=== PATIENT | male | born 1985 | race Hispanic/Latino ===

== ENCOUNTER 2022-06-03 12:31 | Emergency (ER) | payer BC ==
--- OUTSIDE RECORDS SUMMARY | 2022-06-03 12:33 | XMS REPORT | Continuity of Care Document ---
:1985 Author Organization [facility] t Address [address] [place] [address] Care Team Providers Name Role Phone Pcp, Patient Does Not Have A Primary Care Physician [id number] VASILIY AGUAYO Attending Clinician Unavailable Ebrasharda INTERNET E COMMER[employer] SPECIALISTVasiliy Nunez Attending Clinician Doctor Unassigned, [place] Attending Clinician Unavailable FLYNN DEL REAL Attending Clinician Unavailable Only, Ang Db Test Attending Clinician Unavailable Flynn Del Real MD Attending Clinician Lab, Adc Fam Pob I Attending Clinician Unavailable Ching Man Attending Clinician CHING MENDEZ Attending Clinician Unavailable Rhianna Victor Attending Clinician RHIANNA PHILLIPS Attending Clinician Unavailable Eduin Lopez Attending Clinician Payers Payer Name Policy Type Policy Number Effective Date Expiration Date S ourchang [facility] - [id number] 2018 00:00:00 OUT OF STATE Problems Condition Condition Condition Status Onset Resolution Last Treating Co mments Source Name Details Category Date Date Treatment Clinician Date No known No known Disease Unive rs active active ity of problems problems [facility] Allergies, Adverse Reactions, Alerts Allergy Allergy Status Severity Reaction(s) Onset Inactive Treating Comm ents Source Name Type Date Date Clinician Penicill Drug Active Other - See 2018-07 Uni vers in V Allergy comments 0-09 ity of 00:00: [address] NO KNOWN Drug Active Univers ALLERGIE Class ity of S [facility] Social History Social Habit Start Date Stop Date Quantity Comments Source Sex Assigned At [facility] Branch Exposure to 2021-12-04 2021-12-14 Not sure [facility] SARS-CoV-2 (event) 00:00:00 18:45:00 Medica l Branch Smoking Status Start Date Stop Date Source Unknown if ever smoked [facility] Medications Ordered Filled Start Stop Current Ordering Indication Dosage Frequency Signature Comments Components Source Medication Medication Date Date Medication? Clinician (SIG) Name Name dexamethaso 2021- No [id number] 10mg [facility] ne 12-15 ity of (DECADRON) 01:15: 00:09 [place] injection 00 :00 Medical 10 mg Branch dexamethaso 2021- No [id number] 10mg 10 mg, [facility] 12-15 Intramuscu ity of (DECADRON) 01:15: 00:09 lar, ONCE, [place] injection 00 :00 1 dose, On Medi arabella 10 mg 12/14/21 Branch at 2014, Routine predniSONE 2021- No [id number] Take 3 Univers 20 mg 12-14 tablets by ity of tablet 00:00: 04:59 mouth [place] 00 :00 daily for Medical 7 days, Branch THEN 2 tablets daily for 7 days, THEN 1 tablet daily for 7 days. Vital Signs Vital Name Observation Time Observation Value Comments Source Systolic blood 2021-12-14 23:52:00 109 mm[Hg] [facility]ity [facility] Diastolic blood 2021-12-14 23:52:00 71 mm[Hg] [facility] rate 2021-12-14 23:52:00 79 /min [facility] Body temperature 2021-12-14 23:52:00 37.39 Fang [facility] Respiratory rate 2021-12-14 23:52:00 18 /min [facility] Body height 2021-12-14 23:52:00 175.3 cm [facility] Body weight 2021-12-14 23:52:00 137.485 kg [facility] BMI 2021-12-14 23:52:00 44.76 kg/m2 Universi ty [facility] Oxygen saturation in 2021-12-14 23:52:00 97 /min University of Arterial blood by [facility] Pulse oximetry [place] Procedures This patient has no known procedures. Encounters Start End Encounter Admission Attending Care Care Encounter Source Date/Time Date/Time Type Type Clinicians Facility Department ID 2021-12-14 2021-12-14 Outpatient R MONIQUE [facility] [id number] Univers 18:40:00 19:07:03 VASILIY [facility] 2021-12-14 2021-12-14 Urgent Monique [facility] [id number] Univers 18:40:00 19:07:03 Care [facility] [id number] it y of [place] [id number] Brodie as ELVIA?BLEA [phone] [address] MEDICAL OFFICE [facility] 2021-12-14 2021-12-14 Orders Doctor QUIROGA 1..840.114 [id number] Univers 00:00:00 00:00:00 Only Unassigned, MARCIAL [id number] ity of [place] [facility] [id number] Brodie as [phone] [address] 2021-07-21 2021-07-21 Outpatient R ROLANDO [facility] [id number] Univers 20:30:00 20:30:00 [facility] 2021-07-21 2021-07-21 Laboratory Only, Ang Db Test [facility] 1.2.8 [id number] [id number] Univers 20:30:00 20:30:00 Only Rolando FlynnReadbug [id number] ity of [place] [id number] Brodie as ELVIA?BLEA [phone] [address] MEDICAL OFFICE [facility] 2021-07-21 2021-07-21 Outpatient R ROLANDO [facility] [id number] Univers 20:30:00 11:51:29 FLYNN [facility] 2020-07-01 2020-07-01 Laboratory Lab, Adc Fam Pob I [facility] 1.. 840.114 [id number] Univers 13:40:42 14:00:42 Only Ching [facility] [id number] ity of [place] [id number] Brodie as Professio [id number] [address] [facility] 2020-07-01 2020-07-01 [facility] [id number] Univers 13:40:00 13:40:00 CHING ity [facility] 2020-05-27 2020-05-27 Laboratory Lab, [facility] I [facility] 1.2. 840.114 [id number] Univers 17:40:44 18:00:44 Only Vasiliy [facility] [id number] ity of [place] [id number] Brodie as Professio [phone] [address] 2020-05-27 2020-05-27 Outpatient R MONIQUE [facility] [id number] Univers 17:40:00 17:40:00 VASILIY ity [facility] 2020-05-27 2020-05-27 Outpatient R [facility] [id number] Univers 17:40:00 17:40:00 ity [facility] 2020-02-06 2020-02-06 Laboratory Lab, [facility] 1.2. 840.114 [id number] Univers 16:38:01 16:58:01 Only Rhianna Phillips [id number] ity of [place] [id number] Brodie as Professio [id number] [address] [facility] 2020-02-06 2020-02-06 Outpatient R JACQUELINE [facility] [id number] Univers 16:40:00 16:40:00 RHIANNA ity [facility] 2020-02-06 2020-02-06 Letter Doctor QUIROGA [id number] Univers 00:00:00 00:00:00 (Out) Unassigned, MARCIAL [id number] ity of [place] [facility] [id number] Brodie as [phone] [address] 2017-11-13 2017-11-14 Outpatient nullFlavo [facility] [id number] Memoria 16:00:00 04:59:59 r Internal 02 l [facility] 2017-11-13 2017-11-13 Outpatient Jessica, MG MG [id number] 11:00:00 23:59:59 Derekrone 2017-11-13 2017-11-13 Outpatient [facility] IE [id number] Memoria 11:00:00 11:00:00 02 juanita Hernandez 2017-10-07 2017-10-08 Ambulatory nullFlavo [facility] [id number] Memoria 14:45:00 04:59:59 [facility] 2017-10[facility]07 2017-10-07 Outpatient [place], [facility] [id number] 09:45:00 23:59:59 Derekron2017-10-07 2017-10-07 Outpatient [facility] IE [id number] Memoria 09:45:00 09:45:00 01 juanita Hernandez 2015-07-27 2015-07-27 Outpatient [facility] IE [id number] Memoria 08:45:00 08:45:00 00 juanita Hernandez Results This patient has no known results.
--- NOTE | 2022-06-03 13:09 | RAD REPORT ---
EXAM DESCRIPTION: CT - Spine Lumbar Wo Con - 06/03/2022 12:55 pm CLINICAL HISTORY: pain COMPARISON: No comparisons TECHNIQUE: Axial noncontrast CT imaging of the lumbar spine was performed with coronal and sagittal re-formatted images. All CT scans are performed using dose optimization technique as appropriate and may include automated exposure control or mA/KV adjustment according to patient size. FINDINGS: No lumbar spine fractures identified. No malalignment. Mild broad-based disc bulges are pr esent at L4-5 and L5-S1 which result in mild bilateral neural foraminal narrowing. Intervertebral disc disease assessment is inherently limited by CT. Within these limitations, no high -grade canal stenosis suspected. IMPRESSION: No acute fracture of the lumbar spine. Consider MRI follow-up for assessment of disc disease if clinically desired.
[2022-06-03] MEDS ORDERED: HYDROCODONE/APAP 10/325 TAB ONE (13:15)
[2022-06-03] MEDS ORDERED: KETOROLAC 30 MG/ML INJ ONE (13:16)
[2022-06-03] MEDS ORDERED: predniSONE 20 MG TAB ONE (13:16)
[2022-06-03 14:18] LABS: Urine Blood Trace-intact (Negative); Urine Glucose Negative (Negative); Urine Protein Negative (Negative); Urine Specific Gravity 1.025 (1.005-1.030); Urine pH 5.5 (5.0-7.0)
--- NOTE | 2022-06-03 14:35 | EDPHYS ---
Physician Documentation [facility] Name: Gregory Li Age: 36 yrs Sex: Male : 1985 Arrival Date: 06/03/2022 Time: 12:32 Bed 19 Private MD: ED Physician Gianni Calderón HPI: 06/03 13:48 This 36 yrs old Male presents to ER via Wheelchair with complaints of Back kb Pain. 13:48 The patient presents with pain that is acute, with no known mechanism of injury. The kb symptoms are located in the low back. Onset: The symptoms/episode began/occurred 6 day(s) ago. The pain does not radiate. Associated signs and symptoms: The patient has no apparent associated signs or symptoms. The problem was sustained without known cause. Modifying factors: The patient symptoms are alleviated by nothing, the patient symptoms are aggravated by any movement. Severity of symptoms: At their worst the symptoms were moderate, in the emergency department the symptoms are unchanged. The patient has not experienced similar symptoms in the past. The patient has not recently seen a physician. Historical: - Allergies: 12:38 No Known Allergies; ld1 - PMHx: 12:38 None; ld1 - PSHx: 12:38 None; ld1 - Immunization history:: Adult Immunizations up to date, Client reports receiving the 2nd dose of the Covid vaccine. - Social history:: Smoking status: Patient denies any tobacco usage or history of. Patient uses alcohol, occasionally. ROS: 13:47 Constitutional: Negative for fever, chills, and weight loss. kb 13:47 Back: Positive for pain at rest, pain with movement, of the low back area. 13:47 All other systems are negative. Exam: 13:47 Constitutional: This is a well developed, well nourished patient who is awake, alert, kb and in no acute distress. Head/Face: Normocephalic, atraumatic. ENT: Moist Mucous membranes Cardiovascular: Regular rate and rhythm with a normal S1 and S2. No gallops, murmurs, or rubs. No pulse deficits. Respiratory: Respirations even and unlabored. No increased work of breathing. Talking in full sentences Abdomen/GI: Soft, non-tender. No distention Back: No spinal tenderness. No costovertebral tenderness. Full range of motion. Skin: Warm, dry with normal turgor. Normal color. MS/ Extremity: Pulses equal, no cyanosis. Neurovascular intact. Full, normal range of motion. Neuro: Awake and alert, GCS 15, oriented to person, place, time, and situation. Moves all extremities. Normal gait. Psych: Awake, alert, with orientation to person, place and time. Behavior, mood, and affect are within normal limits. 13:47 Back: pain, that is moderate, ROM is painful, with all movement, normal spinal kb alignment noted, CVA tenderness, is absent. Vital Signs: 12:37 BP 132 / 87; Pulse 70; Resp 18; Temp 97.6(TE); Pulse Ox 100% on R/A; Weight 136.08 kg; ld1 Height 6 ft. 1 in. (185.42 cm); Pain 10/; 12:37 Body Mass Index 39.58 (136.08 kg, 185.42 cm) ld1 MDM: 12:37 Patient medically screened. kb 13:22 Data reviewed: vital signs, nurses notes. Data interpreted: Pulse oximetry: on room air kb is 100 %. Interpretation: normal. Counseling: I had a detailed discussion with the patient and/or guardian regarding: the historical points, exam findings, and any diagnostic results supporting the discharge/admit diagnosis, radiology results, the need for outpatient follow up, a family practitioner, to return to the emergency department if symptoms worsen or persist or if there are any questions or concerns that arise at home. 14:35 Response to treatment: the patient's symptoms have markedly improved after treatment. kb 06/03 14:18 Order name: Urine Dipstick-Ancillary; Complete Time: 14:28 EDMS 06/03 12:38 Order name: CT Lumbar Spine Wo Con; Complete Time: 13:16 kb Administered Medications: 13:20 Drug: [place] (HYDROcodone-acetaminophen) 10 mg-325 mg 1 tabs Route: PO; bp 13:20 Drug: Ketorolac 30 mg Route: IM; Site: right deltoid; bp 13:20 Drug: predniSONE 60 mg Route: PO; bp Disposition: 16:56 Co-signature as Attending Physician, Gianni Calderón MD I agree with the assessment and rt plan of care. Disposition Summary: 06/03/22 14:34 Discharge Ordered Location: Home kb Condition: Stable kb Diagnosis - Low back pain kb Followup: kb - With: Emergency Department - When: As needed - Reason: Worsening of condition Followup: kb - With: Private Physician - When: 2 - 3 days - Reason: Recheck today's complaints, Continuance of care, Re-evaluation by your physician Discharge Instructions: - Discharge Summary Sheet kb - Musculoskeletal Pain kb Forms: - Medication Reconciliation Form kb - Thank You Letter kb - Antibiotic Education kb - Prescription Opioid Use kb - Work release form iw Prescriptions: - Prednisone 20 mg Oral Tablet - take 1 tablet by ORAL route once daily for 5 days; 5 tablet; Refills: 0, kb Product Selection Permitted - Cyclobenzaprine 10 mg Oral Tablet - take 1 tablet by ORAL route every 8 hours As needed; 15 tablet; Refills: 0, kb Product Selection Permitted - Diclofenac Sodium 75 mg Oral tablet,delayed release (DR/EC) - take 1 tablet by ORAL route 2 times per day As needed; 30 tablet; Refills: 0, kb Product Selection Permitted Signatures: Dispatcher [employer] EDAnn Brown, RESEARCH GREENHOUSE SUPERVISOR-C RESEARCH GREENHOUSE SUPERVISOR-Isra Wise, RN RN bp Lindsay Longoria RN RN ld1 Gianni Calderón MD MD rt
--- NOTE | 2022-06-03 14:35 | ER ---
Nurse's Notes [facility] Name: Gregory Li Age: 36 yrs Sex: Male : 1985 Arrival Date: 06/03/2022 Time: 12:32 Bed 19 Private MD: Diagnosis: Low back pain Presentation: 06/03 12:37 Chief complaint: Patient states: FLAKITO lower back pain - since . Today pain ld1 became much worse. Coronavirus screen: At this time, the client does not indicate any symptoms associated with coronavirus-19. Ebola Screen: No symptoms or risks identified at this time. Initial Sepsis Screen: Does the patient meet any 2 criteria? No. Patient's initial sepsis screen is negative. Does the patient have a suspected source of infection? No. Patient's initial sepsis screen is negative. Risk Assessment: Do you want to hurt yourself or someone else? Patient reports no desire to harm self or others. Onset of symptoms was June 03, 2022. 12:37 Method Of Arrival: Wheelchair ld1 12:37 Acuity: HA 3 ld1 Triage Assessment: 12:38 General: Appears in no apparent distress. comfortable, Behavior is calm, cooperative, ld1 appropriate for age. Pain: Complains of pain in low back area and mid back area Pain does not radiate. Pain currently is 10 out of 10 on a pain scale. Quality of pain is described as throbbing. EENT: No signs and/or symptoms were reported regarding the EENT system. Neuro: Level of Consciousness is awake, alert, obeys commands, Oriented to person, place, time, situation. Cardiovascular: Capillary refill < 3 seconds Patient's skin is warm and dry. Respiratory: Airway is patent Respiratory effort is even, unlabored. GI: Abdomen is round non-distended. : No signs and/or symptoms were reported regarding the genitourinary system. Derm: No signs and/or symptoms reported regarding the dermatologic system. Musculoskeletal: Range of motion: intact in all extremities. Historical: - Allergies: 12:38 No Known Allergies; ld1 - PMHx: 12:38 None; ld1 - PSHx: 12:38 None; ld1 - Immunization history:: Adult Immunizations up to date, Client reports receiving the 2nd dose of the Covid vaccine. - Social history:: Smoking status: Patient denies any tobacco usage or history of. Patient uses alcohol, occasionally. Vital Signs: 12:37 BP 132 / 87; Pulse 70; Resp 18; Temp 97.6(TE); Pulse Ox 100% on R/A; Weight 136.08 kg; ld1 Height 6 ft. 1 in. (185.42 cm); Pain 10/10; 12:37 Body Mass Index 39.58 (136.08 kg, 185.42 cm) ld1 ED Course: 12:32 Patient arrived in ED. as 12:33 [facility] Coates [facility]-C [facility] kb 12:33 Gianni Calderón MD is Attending Physician. kb 12:38 Triage completed. ld1 12:38 Arm band placed on right wrist. ld1 12:42 sIra Suazo, RN is Primary Nurse. bp 12:56 CT Lumbar Spine Wo Con In Process Unspecified. EDMS Administered Medications: 13:20 Drug: [place] (HYDROcodone-acetaminophen) 10 mg-325 mg 1 tabs Route: PO; bp 13:20 Drug: Ketorolac 30 mg Route: IM; Site: right deltoid; bp 13:20 Drug: predniSONE 60 mg Route: PO; bp Outcome: 14:34 Discharge ordered by MD. kb 15:32 Patient left the ED. iw Signatures: Dispatcher [employer] EDMS Ann Coates FNP-C FNP-Piper Burch as Galina Spivey, RN CHRISSY iw Isra Suazo RN RN bp Lindsay Longoria RN RN ld1
[2022-06-03 15:55] VITALS: BP 132/87; TEMP 97.6; O2SAT 100
== END 2022-06-03 15:32 | disposition home or self-care (01) ==
LOC: ER 12:31
DX: M54.50 Low back pain, unspecified (principal)
CPT/HCPCS: 81003; 72131; 96372; 99283; J7512